=== PATIENT | female | born 1995 | race Caucasian/White ===

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

== ENCOUNTER 2019-11-14 12:53 | Emergency (ER) | payer SELFPAY ==
[2019-11-14] MEDS ORDERED: SODIUM CHLORIDE 0.9% 1000ML 1,000 ML IVS ONE (13:07)
[2019-11-14] MEDS ORDERED: ACETAMINOPHEN 500 MG TAB PO ONE (13:07)
[2019-11-14 13:09] VITALS: TEMP 97.8
--- NOTE | 2019-11-14 13:16 | ED.PDOC ---
History of Present Illness - General Chief Complaint: Abdominal Pain Stated Complaint: abd cramping,diarrhea Time Seen by Provider: 11/14/19 13:06 - History of Present Illness Initial Comments: 24 yo F no significant PMH but PMH tubal ligation presents to ED c/o bilateral abdominal cramping today with non bloody diarrhea. Denies fever cough recent travel or contact with covid19. Denies fever chills nausea vomiting admits diarr hea (non bloody) denies chest pain sob diaphoresis. No change in diet rest bladder. Admits occasional drinking admits smoking admits FH HTN denies FH DM has no PMD for follow up no other c/o today. PPE worn-N95 surgical mask with attached face shield over N95 gloves and face shield over that Review of Systems - Review of Systems Constitutional: States: see HPI EENTM: States: see HPI Respiratory: States: see HPI Cardiology: States: see HPI Gastrointestinal/Abdominal: States: see HPI Genitourinary: States: see HPI Musculoskeletal: States: see HPI Skin: States: see HPI Neurological: States: see HPI Endocrine: States: see HPI All other Systems: Reviewed and Negative Past Medical History (General) - Patient Medical History Hx Seizures: No Hx Stroke: No Hx Dementia: No Hx Asthma: No Hx of COPD: No Hx Cardiac Disorders: No Hx Congestive Heart Failure: No Hx Pacemaker: No Hx Hypertension: No Hx Thyroid Disease: No Hx Diabetes: No Hx Gastroesophageal Reflux: No Hx Renal Disease: No Hx Cancer: No Hx of HIV: No Hx Hepatitis C: No Hx MRSA: No - Vaccination History Hx Tetanus, Diphtheria Vaccination: No Hx Influenza Vaccination: No Hx Pneumococcal Vaccination: No - Social History Hx Tobacco Use: Yes Hx Chewing Tobacco Use: No Hx Alcohol Use: Yes Hx Substance Use: No Hx Substance Use Treatment: No Hx Depression: No Hx Physical Abuse: No Hx Emotional Abuse: No Hx Suspected Abuse: No - Female History Patient is a Female of Child Bearing Age (10 -59 yrs old): Yes Hx Last Menstrual Period: 05/27/14 Patient : No Expected Date of Delivery:: 02/17/15 Family Medical History - Family History Mother Family History: No Known Living Status: Still Living Hx Family;Other: Pt states just depression Father Maternal Living Status: Still Living Hx Family Hypertension: Yes Grandparents Living Status: Hx Family Diabetes: Yes Sister Maternal Living Status: Still Living Hx Family;Other: Pt states she has some heart problems but is unsure what. Physical Exam - Physical Exam General Appearance: No apparent distress Eyes, Ears, Nose, Throat Exam: normal ENT inspection Neck: non-tender, full range of motion Respiratory: no respiratory distress Cardiovascular/Chest: regular rate, rhythm Gastrointestinal/Abdominal: soft, tenderness - tender suprapubically and lower quadrants Pelvic Exam: other - deferred Rectal Exam: deferred Back Exam: normal inspection Extremity: normal range of motion, non-tender Neurologic: no motor/sensory deficits Skin Exam: normal color Progress - Progress Progress: 11/14/19 13:18 A/P-Abdominal Pain-iv bolus tylenol cbc cmp lipase ua uhcg ct abdomen pelvis reassess 11/14/19 14:06 Laboratory Tests 11/14/19 11/14/19 11/14/19 13:12 13:12 13:12 WBC 7.2 RBC 4.69 Hgb 14.4 Hct 41.9 MCV 89.4 MCH 30.6 MCHC 34.3 RDW 12.8 Plt Count 261 MPV 7.7 Absolute Neuts (auto) 4.90 Absolute Lymphs (auto) 1.80 Absolute Monos (auto) 0.40 Absolute Eos (auto) 0.10 Absolute Basos (auto) 0.00 Neutrophils % 68.5 Lymphocytes % 24.8 Monocytes % 5.2 Eosinophils % 0.9 L Basophils % 0.6 PT 10.7 INR 1.08 PTT (SP) 25.1 Sodium 141 Potassium 3.8 Chloride 106 Carbon Dioxide 25 Anion Gap 13.8 BUN 8 Creatinine 0.68 BUN/Creatinine Ratio 11.8 Random Glucose 82 Serum Osmolality 278.7 Calcium 9.2 Total Bilirubin 0.7 AST 18 ALT 14 Alkaline Phosphatase 50 Serum Total Protein 7.3 Albumin 4.8 Globulin 2.5 Albumin/Globulin Ratio 1.9 Lipase Serum HCG, Qual Urine Color Urine Appearance Urine pH Ur Specific [place] Urine Protein Urine Glucose (UA) Urine Ketones Urine Blood Urine Nitrite Urine Bilirubin Urine Urobilinogen Ur Leukocyte Esterase Urine RBC Urine WBC Ur Epithelial Cells Urine Bacteria 11/14/19 11/14/19 11/14/19 13:12 13:12 13:40 WBC RBC Hgb Hct MCV MCH MCHC RDW Plt Count MPV Absolute Neuts (auto) Absolute Lymphs (auto) Absolute Monos (auto) Absolute Eos (auto) Absolute Basos (auto) Neutrophils % Lymphocytes % Monocytes % Eosinophils % Basophils % PT INR PTT (SP) Sodium Potassium Chloride Carbon Dioxide Anion Gap BUN Creatinine BUN/Creatinine Ratio Random Glucose Serum Osmolality Calcium Total Bilirubin AST ALT Alkaline Phosphatase Serum Total Protein Albumin Globulin Albumin/Globulin Ratio Lipase 36 Serum HCG, Qual Negative Urine Color Yellow Urine Appearance Clear Urine pH 7.0 Ur Specific [place] 1.020 Urine Protein Negative Urine Glucose (UA) Negative Urine Ketones Negative Urine Blood Negative Urine Nitrite Negative Urine Bilirubin Negative Urine Urobilinogen 0.2 Ur Leukocyte Esterase Small H Urine RBC 0-1 Urine WBC 5-10 H Ur Epithelial Cells 10-20 Urine Bacteria Rare 11/14/19 14:45 d/c tylenol ibuprofen augmentin - Results/Orders Results/Orders: Laboratory Tests 11/14/19 11/14/19 11/14/19 13:12 13:12 13:12 WBC 7.2 RBC 4.69 Hgb 14.4 Hct 41.9 MCV 89.4 MCH 30.6 MCHC 34.3 RDW 12.8 Plt Count 261 MPV 7.7 Absolute Neuts (auto) 4.90 Absolute Lymphs (auto) 1.80 Absolute Monos (auto) 0.40 Absolute Eos (auto) 0.10 Absolute Basos (auto) 0.00 Neutrophils % 68.5 Lymphocytes % 24.8 Monocytes % 5.2 Eosinophils % 0.9 L Basophils % 0.6 PT 10.7 INR 1.08 PTT (SP) 25.1 Sodium 141 Potassium 3.8 Chloride 106 Carbon Dioxide 25 Anion Gap 13.8 BUN 8 Creatinine 0.68 BUN/Creatinine Ratio 11.8 Random Glucose 82 Serum Osmolality 278.7 Calcium 9.2 Total Bilirubin 0.7 AST 18 ALT 14 Alkaline Phosphatase 50 Serum Total Protein 7.3 Albumin 4.8 Globulin 2.5 Albumin/Globulin Ratio 1.9 Lipase Serum HCG, Qual Urine Color Urine Appearance Urine pH Ur Specific [place] Urine Protein Urine Glucose (UA) Urine Ketones Urine Blood Urine Nitrite Urine Bilirubin Urine Urobilinogen Ur Leukocyte Esterase Urine RBC Urine WBC Ur Epithelial Cells Urine Bacteria 11/14/19 11/14/19 11/14/19 13:12 13:12 13:40 WBC RBC Hgb Hct MCV MCH MCHC RDW Plt Count MPV Absolute Neuts (auto) Absolute Lymphs (auto) Absolute Monos (auto) Absolute Eos (auto) Absolute Basos (auto) Neutrophils % Lymphocytes % Monocytes % Eosinophils % Basophils % PT INR PTT (SP) Sodium Potassium Chloride Carbon Dioxide Anion Gap BUN Creatinine BUN/Creatinine Ratio Random Glucose Serum Osmolality Calcium Total Bilirubin AST ALT Alkaline Phosphatase Serum Total Protein Albumin Globulin Albumin/Globulin Ratio Lipase 36 Serum HCG, Qual Negative Urine Color Yellow Urine Appearance Clear Urine pH 7.0 Ur Specific [place] 1.020 Urine Protein Negative Urine Glucose (UA) Negative Urine Ketones Negative Urine Blood Negative Urine Nitrite Negative Urine Bilirubin Negative Urine Urobilinogen 0.2 Ur Leukocyte Esterase Small H Urine RBC 0-1 Urine WBC 5-10 H Ur Epithelial Cells 10-20 Urine Bacteria Rare EXAM DESCRIPTION: Chest,1 View CLINICAL HISTORY: 24 years Female, abdominal pain COMPARISON: None. TECHNIQUE: AP portable chest. FINDINGS: Heart size is normal with normal pulmonary vascularity. No consolidating infiltrate. No pulmonary mass or worrisome nodule. No pneumothorax or pleural effusion. Bones are unremarkable. IMPRESSION: No acute process is identified in the chest. Electronically signed by: Mohinder Fleming MD 11/14/2019 2:14 PM CDT EXAM DESCRIPTION: Abdomen/Pelvis w/Contrast CLINICAL HISTORY: 24 years Female, pain vomiting TECHNIQUE: This exam was performed according to our departmental dose-optimization program, which includes automated exposure control, adjustment of the mA and/or kV according to patient size and/or use of iterative reconstruction technique. COMPARISON: None at time of initial interpretation. FINDINGS: Visualized lung bases are grossly unremarkable. The liver is unremarkable. No suspicious hepatic lesion. No biliary dilatation. The gallbladder is unremarkable. The portal vein is patent. Heterogeneous spleen. Benign cystic lesion involving the posterior aspect of the spleen. The pancreas and adrenal glands are unremarkable. Symmetric renal parenchymal enhancement. No urolithiasis. Mild right hydroureter with associated urothelial thickening. The bladder is unremarkable. The uterus is anteverted. Right corpus luteum. No suspicious adnexal lesion. No evidence of bowel obstruction or focal inflammatory change. No findings to suggest appendicitis. No adenopathy. No focal fluid collection. No free air. Normal caliber abdominal aorta. No acute or suspicious osseous abnormality. IMPRESSION: Mild right hydroureter with associated urothelial thickening. Recommend correlation with urinalysis for evaluation of an infectious process. Electronically signed by: Gianni Golden MD 11/14/2019 2:17 PM CDT Departure - Departure Clinical Impression: Cystitis Abdominal pain Qualifiers: Abdominal location: generalized Qualified Code(s): R10.84 - Generalized abdominal pain Time of Disposition: 14:50 Disposition: Discharge to Home or Self Care Condition: Good Departure Forms: ED Discharge - Pt. Copy, Patient Portal Self Enrollment Instructions: DI for Abdominal Pain-Adult Referrals: Felix Romero MD [Active Staff] - 1-2 Days Prescriptions: Amoxicillin & Pot Clavulanate [Augmentin Tab] 875 mg PO BID 10 Days #20 tab Ibuprofen 600 mg PO Q6H PRN #20 tab PRN Reason: Pain Acetaminophen [Tylenol] 650 mg PO Q6H PRN #30 tab PRN Reason: Pain Home Medications: Ambulatory Orders Acetaminophen [Tylenol] 650 mg PO Q6H PRN #30 tab 11/14/19 Amoxicillin & Pot Clavulanate [Augmentin Tab] 875 mg PO BID 10 Days #20 tab 11/14/19 Ibuprofen 600 mg PO Q6H PRN #20 tab 11/14/19
--- NOTE | 2019-11-14 14:16 | RAD ---
EXAM DESCRIPTION: Chest,1 View CLINICAL HISTORY: 24 years Female, abdominal pain COMPARISON: None. TECHNIQUE: AP portable chest. FINDINGS: Heart size is normal with normal pulmonary vascularity. No consolidating infiltrate. No pulmonary mass or worrisome nodule. No pneumothorax or pleural effusion. Bones are unremarkable. IMPRESSION: No acute process is identified in the chest. Electronically signed by: Mohinder Fleming MD 11/14/2019 2:14 PM CDT
--- NOTE | 2019-11-14 14:18 | CT ---
EXAM DESCRIPTION: Abdomen/Pelvis w/Contrast CLINICAL HISTORY: 24 years Female, pain vomiting TECHNIQUE: This exam was performed according to our departmental dose-optimization program, which includes automated exposure control, adjustment of the mA and/or kV according to patient size and/or use of iterative reconstruction technique. COMPARISON: None at time of initial interpretation. FINDINGS: Visualized lung bases are grossly unremarkable. The liver is unremarkable. No suspicious hepatic lesion. No biliary dilatation. The gallbladder is unremarkable. The portal vein is patent. Heterogeneous spleen. Benign cystic lesion involving the posterior aspect of the spleen. The pancreas and adrenal glands are unremarkable. Symmetric renal parenchymal enhancement. No urolithiasis. Mild right hydroureter with associated urothelial thickening. The bladder is unremarkable. The uterus is anteverted. Right corpus luteum. No suspicious adnexal lesion. No evidence of bowel obstruction or focal inflammatory change. No findings to suggest appendicitis. No adenopathy. No focal fluid collection. No free air. Normal caliber abdominal aorta. No acute or suspicious osseous abnormality. IMPRESSION: Mild right hydroureter with associated urothelial thickening. Recommend correlation with urinalysis for evaluation of an infectious process. Electronically signed by: Gianni Golden MD 11/14/2019 2:17 PM CDT
[2019-11-14 14:22] VITALS: O2SAT 100
[2019-11-14 15:00] VITALS: BP 111/67
== END 2019-11-14 15:00 | disposition home or self-care (01) ==
LOC: ER 12:53
DX: N30.90 Cystitis, unspecified without hematuria (principal); R10.84 Generalized abdominal pain; F17.200 Nicotine dependence, unspecified, uncomplicated; Z98.51 Tubal ligation status
CPT/HCPCS: 36415; 71045; 74177; 80053; 81001; 83690; 84703; 85025; 85610; 85730; 87086; J7030